=== PATIENT | female | born 1970 | race Caucasian/White ===

== ENCOUNTER → 2017-03-12 | Outpatient (CLI) | payer BC | LOC: MC.RAD 10:00 | DX: Z12.31 Encounter for screening mammogram for malignant neoplasm of breast (principal) ==

== ENCOUNTER → 2018-04-30 | Outpatient (CLI) | payer OTHER | LOC: MC.RAD 14:00 | DX: Z12.31 Encounter for screening mammogram for malignant neoplasm of breast (principal) ==

== ENCOUNTER → 2019-05-24 | Outpatient (CLI) | payer OTHER | LOC: MC.RAD 13:56 | DX: Z12.31 Encounter for screening mammogram for malignant neoplasm of breast (principal) ==

== ENCOUNTER → 2020-04-26 | Outpatient (CLI) | payer OTHER | LOC: COL.RAD 13:33 | DX: M41.34 Thoracogenic scoliosis, thoracic region (principal) ==

== ENCOUNTER → 2020-05-17 | Outpatient (CLI) | payer OTHER | LOC: COL.RAD 12:47 | DX: M25.551 Pain in right hip (principal) | CPT/HCPCS: A9585; J3301; Q9967 ==

== ENCOUNTER → 2020-05-25 | Outpatient (CLI) | payer OTHER | LOC: MC.RAD 13:45 | DX: Z12.31 Encounter for screening mammogram for malignant neoplasm of breast (principal) ==

== ENCOUNTER → 2021-07-16 | Outpatient (CLI) | payer OTHER | LOC: MC.RAD 13:00 | DX: Z12.31 Encounter for screening mammogram for malignant neoplasm of breast (principal) ==

== ENCOUNTER → 2021-11-29 | Outpatient (CLI) | payer OTHER | LOC: COL.RAD 11:02 | DX: M41.86 Other forms of scoliosis, lumbar region (principal); M41.84 Other forms of scoliosis, thoracic region ==

== ENCOUNTER → 2023-03-21 | Outpatient (CLI) | payer OTHER | LOC: MC.RAD 11:25 | DX: Z12.31 Encounter for screening mammogram for malignant neoplasm of breast (principal) ==

== ENCOUNTER → 2024-04-08 | Outpatient (CLI) | payer BC ==
[~2024-04-08] MED LIST: Iohexol 300 - 10 ML VIAL IV ONE; Triamcinolone 40 MG/ML 1 ML VIAL IJ ONE
== END ==
LOC: COL.RAD 04-07 13:00
DX: M25.551 Pain in right hip (principal)
CPT/HCPCS: J0665; J3301; Q9967